=== PATIENT | male | born 2000 | race Caucasian/White ===

== ENCOUNTER 2025-04-05 14:45 | Emergency (ER) | payer SELFPAY ==
--- NOTE | ~2025-04-05 | CT_ITS ---
CLINICAL HISTORY: ?seizure vs syncope, +HS CT head without contrast Comparison: None provided Findings: No intra-axial mass, midline shift, hydrocephalus, or acute hemorrhage. No significant atrophy-like change or white matter disease. The visualized paranasal sinuses and mastoid air cells are normal. Enophthalmos. Orbits otherwise unremarkable. No skull fracture. IMPRESSION: 1. No acute intracranial findings. This document has been electronically signed by: Max Gibbons MD on 04/05/2025 16:27:13
--- NOTE | ~2025-04-05 | XR_ITS ---
CLINICAL HISTORY: syncope vs seizure 1 view chest x-ray Comparison: None provided Findings: The lungs are clear. Normal size heart. No acute fracture. IMPRESSION: 1. No acute findings. This document has been electronically signed by: Max Gibbons MD on 04/05/2025 16:22:12
[2025-04-05 14:56] VITALS: BP 168/97; PULSE 81; RESP 18; TEMP 36.6; O2SAT 98; BMI 23.4
--- NOTE | 2025-04-05 14:57 | ED_ITS ---
HPI - General Adult General Chief complaint: General Medical Stated complaint: Vital check Time Seen by Provider: 04/05/25 17:47 History of Present Illness ED Provider: Jade SCALES narrative: The patient is a generally healthy 25-year-old male who was on no medications. He comes to the emergency room for an evaluation of events that happened yesterday evening. The patient says that yesterday evening he use some marijuana and also had 3 shots of alcohol. At at some period of time after he had had the alcohol he was not feeling particularly intoxicated. He was preparing some food in the kitchen. He says that while he was in the kitchen he rather abruptly felt as though he was very intoxicated and also felt lightheaded. He sat down. His cousin was home and walked into the kitchen when he started to feel unwell.. He did not want his cousin to know that he was not feeling well so he told his cousin he needed to go to the bathroom. He walked to the bathroom. He says that when he got to the bathroom he felt very lightheaded and collapsed on the floor. While on the floor he felt that he was convulsing although he was conscious and recalls this episode. He says that he felt as though he was convulsing for less than a minute and then the convulsing stopped. He then got up and walked to the living room where his cousin was. He says that he felt very lightheaded when he walked into the living room and then collapsed in passed out momentarily. He says that there was no convulsing or other signs of seizure activity during this episode of passing out. He says he passed out only very briefly and came to to a normal mental status. His cousin helped him off the floor and he sat on a couch for awhile until he was feeling better a few minutes later. He rested during the rest of the evening until he went to bed and slept normally during the night. There was no tongue biting or incontinence during either of the 2 episodes of collapse. Today family members encouraged him to come to the hospital for evaluation. The patient says that several years ago he had an episode of near-syncope when he cut his finger and he saw his own blood. The patient also says that he has been coughing for the last several weeks. He has felt as if he has a cold or some kind of lung infection. He does not think he has had a fever but he is not certain. He feels that he is getting somewhat better. The patient says that he does not normally drink much alcohol. He says that his grandfather recently. The was 2 weeks ago. He says he has been drinking more than usual over the last 2 weeks. He says that ordinarily he has not drink much. He says that he uses marijuana daily and he used marijuana last night. He denies any other drug use last night. The patient works as a reinforcing bar setter. He says he does not have a regular doctor. He smokes 1 pack of cigarettes a day. He says that he has been very sad since his grandfather but he is not suicidal. He says that when he was young he grew up with a lot of family dysfunction and drug use and he says that when he was young he sometimes had some suicidal thoughts but he has not had any recent suicidal thoughts. He lives at home with his grandmother. His cousin was visiting for the weekend. Related Data Allergies Allergy/AdvReac Type Severity Reaction Status Date / Time banana (BANANA) Allergy Unknown UNKNOWN Verified 04/05/25 14:58 Review of Systems 2 Review of Systems: Yes all other systems are reviewed and are negative [facility] Social History Social History Advance Directives: No Advance Directives Information Provided: No Do you have a plan to hurt others: No Plan Physical Exam ED Vital Signs: Vital Signs - 24 hr 04/05/25 14:56 04/05/25 17:59 04/05/25 17:59 Temperature 97.9 F Pulse Rate 81 67 63 Respiratory Rate 18 Blood Pressure 168/97 H 126/80 140/91 H Pulse Oximetry 98 Oxygen Delivery Method Room Air 04/05/25 17:59 04/05/25 18:31 04/05/25 19:44 Temperature 98.3 F Pulse Rate 71 63 71 Respiratory Rate 20 16 Blood Pressure 148/94 H 126/76 Pulse Oximetry 98 Oxygen Delivery Method Room Air 04/05/25 20:18 Temperature 98.2 F Pulse Rate 71 Respiratory Rate 16 Blood Pressure 124/68 Pulse Oximetry 98 Oxygen Delivery Method Room Air BMI result Body Mass Index 23.4 Const Other: The patient has the appearance of a healthy looking 25-year-old. He is awake and alert and does not appear in acute distress. HENMT Other: The face is symmetrical. ?Mucous membranes moist. Eyes General: appearance normal, both eyes and all related structures Alignment and Position: alignment normal Periorbital: periorbital findings normal Eyelids: Yes eyelids normal Conjunctivae: conjunctivae normal Sclerae: sclerae normal Pupils: Equal, round and reactive pupils present EOM: EOMs intact bilaterally Neck Neck: Yes normal visual inspection and Yes full ROM Resp Other: The patient had some inspiratory and expiratory wheezes bilaterally. He was not showing any signs of respiratory distress however. Cardio Rate: regular rate Rhythm: regular rhythm Heart sounds: S1 normal heart sound present and S2 normal heart sound present GI Other: Abdomen is soft and nontender Skin Other: The skin is dry and unremarkable Neuro Other: The patient is awake and alert with a normal mental status. Pupils are round, equal, and reactive to light, extraocular movements are intact, face is symmetrical. Speech is normal. He moves all of his extremities normally. His gait is normal. He seems entirely neurologically intact. Cranial nerves: Yes Equal, round and reactive pupils present Extrem Other: Extremities are unremarkable. Course Course Course Narrative: This is a Rapid Medical Exam performed in triage by Jerrica Cervantes PA-C. Full HPI, ROS and PE to be performed by primary ED provider. 25 yo M w/no sig PMHx presenting to the ED c/o ?suspected 1st time seizure last night. States he had 2 shots of alcohol and then felt like he was slurring his speech & collapsed in the bathroom w/+HS. No incontinence or tongue biting occurred during incident. States felt lethargic after however was awake for incident. States then again collapsed in his kitchen afterwards. States he has been drinking more since the of his grandfather, about 4 shots and 1 beer daily. PE: NAD. ambulating with steady gait Plan: EKG, labs, Head CT Medications Administered Discontinued Medications Generic Name Dose Route Start Last Admin Trade Name Freq PRN Reason Stop Dose Admin Albuterol Sulfate 4 puff 04/05/25 18:26 04/05/25 19:41 Albuterol Sulfate 90 Mcg 8 Gm Inhaler INHALE 04/05/25 18:27 4 puff ONCE ONE Administration Medical Decision Making Medical Decision Making MDM Narrative: The patient is a 25-year-old male who had some kind of episodes last night after having had marijuana and alcohol. He describes collapsing in a bathroom but not losing consciousness. He says that he felt that he was convulsing when he was lying on the floor of the bathroom but he recalls the entire incident and he was then able to get up and walk. He then collapsed again and had a brief loss of consciousness that was not associated with any abnormal movements. He had no tongue biting or incontinence. He comes today, almost 24 hours after the incident. Aside from some wheezing in his lungs his physical exam is very reassuring. Based on the description of the episodes I do not think these were seizures. I suspect that this was more some kind of a near-syncope followed by a syncope probably related to alcohol and marijuana use. The patient also says that he has been feeling quite upset since his grandfather's a few weeks ago. He denies suicidality however. The patient has a workup in the emergency room that included a head CT, chest x- ray, and multiple laboratory tests all of which were unremarkable. His EKGs normal. The patient says he does not have a history of asthma or wheezing but he is a pack-a-day smoker. I suspect he has some viral bronchitis (as COVID and influenza are negative, in his chest x-ray is clear). Respiratory therapy instructed him the use of an inhaler and he will be discharged with an albuterol inhaler. You may use 2 puffs every 4 hours as needed. He does not have insurance or a primary care doctor. He is advised to try to get insurance through his employer and also to get a primary care doctor. He was given contact information for local primary care offices. Additionally he was given the contact information for the [facility] clinic in case he has any interest in trying to get a therapist. He should return if worse. Since I do not believe these episodes last night were seizures I do not feel he requires any restrictions and driving or doing his work as a reinforcing bar setter. Lab Data 04/05/25 15:09 04/05/25 15:09 Labs: Lab Results 04/05/25 Range/Units 15: WBC 7.9 (4.8-10.8) X10*3/uL RBC 5.36 (4.60-5.80) X10*6/uL Hgb 15.8 (14.0-18.0) g/dl Hct 46.1 (42.0-52.0) % MCV 86.0 (80.0-98.0) fL MCH 29.5 (27.0-33.0) pg MCHC 34.3 (31.0-36.0) g/dl RDW 12.5 (11.0-16.0) % Plt Count 244 (160-400) X10*3/uL MPV 9.4 (9.4-12.4) fL Immature Gran % (Auto) 0.4 (0.0-0.4) % Neut % (Auto) 53.8 (45-73) % Lymph % (Auto) 33.9 (20-40) % [place] % (Auto) 9.4 (2-11) % Eos % (Auto) 2.2 (0-4) % Baso % (Auto) 0.3 (0-2) % Lymph # (Auto) 2.7 (1.2-4.9) X10*3/uL [place] # (Auto) 0.7 (0.1-1.2) X10*3/uL Eos # (Auto) 0.2 (0.0-0.4) X10*3/uL Baso # (Auto) 0.0 (0.0-0.2) X10*3/uL Abs Immat Gran (auto) 0.03 (0.00-0.03) X10*3/uL Absolute Neuts (auto) 4.2 (2.0-8.3) x10*3/uL Absolute Nucleated RBC 0.000 (0.0-0.012) X10*3/uL Nucleated RBC % (auto) 0.0 (0.0-0.2) /100WBC Sodium 138 (135-145) mmol/L Potassium 4.2 (3.3-5.1) mmol/L Chloride 104 (96-108) mmol/L Carbon Dioxide 26 (22-29) mmol/L Anion Gap 12 (12-20) BUN 18 H (9-16) mg/dL Creatinine 1.29 (0.5-1.4) mg/dL Estim Creat Clear Calc 92.4 Estimated GFR > 60 Random Glucose 95 (60-115) mg/dL Calcium 9.0 (8.4-10.2) mg/dL Magnesium 2.0 (1.6-2.6) mg/dL Total Bilirubin 0.4 (0.0-1.0) mg/dL Direct Bilirubin 0.2 (0.0-0.5) mg/dL AST 20 (5-37) U/L ALT 20 (0-40) U/L Alkaline Phosphatase 93 (39-117) U/L Total Protein 7.2 (6.5-8.0) g/dL Albumin 4.8 (3.5-5.0) g/dL Lipase 39 (8-78) U/L Ethyl Alcohol < 10 mg/dL Discharge Plan Discharge Clinical Impression: Syncope, Bronchitis Patient Disposition: Home, Self-Care Additional Instructions: I think that the episode you had last night were more fainting spells than seizures. I suspect that the fainting spells were probably related to alcohol and marijuana use. Please be very careful with the alcohol marijuana use in the future. I think you also have a case of bronchitis which may be in part worsened by your smoking of cigarettes. Please use the albuterol inhaler provided 2 puffs every 4 hours as needed. My hope is that your breathing issues will clear up in a few days. Please work on getting a primary care doctor. You has been provided with the contact information for several local primary care offices. Additionally, if you have any interest in trying to find a therapist you can contact or present yourself to the [facility] run by the [facility] ([facility]). If at any point you feel significantly worse please return to the emergency department. Referrals: [facility] [place] [facility] [Provider Group, Internal Medicine] [facility] [place] [facility] [Provider Group, Internal Medicine] [facility] [place] Primary Care, [facility] [Provider Group, Primary Care] [facility] [place], [facility] [Provider Group, Primary Care] [facility] [Outside] Khadijah Carrasco MD [Physician, Internal Medicine] Stand Alone Forms: Work/School Release Interventions: ED Discharge Assessment Last Done: 04/05/25 20:18 Discharge Date/Time: 04/05/25 20:19 Print Language: [place]
--- NOTE | 2025-04-05 14:59 | ECG_ITS ---
Test Reason : syncope Blood Pressure : */* mmHG Vent. Rate : 73 BPM Atrial Rate : 73 BPM P-R Int : 132 ms QRS Dur : 98 ms QT Int : 380 ms P-R-T Axes : 17 27 32 degrees QTcB Int : 418 ms Normal sinus rhythm Normal ECG No previous ECGs available Referred By: Jerrica Cervantes Electronically Signed By: ROVERTO PAREKH
[2025-04-05 15:13] LABS: MANUAL DIFF FLAG NO
[2025-04-05 15:14] LABS: Hematocrit 46.1 % (42.0-52.0); Hemoglobin 15.8 g/dl (14.0-18.0); Imm Gran Abs Auto 0.03 X10*3/uL (0.00-0.03); Imm Gran Pct Auto 0.4 % (0.0-0.4); Lymphocytes Absolute Auto 2.7 X10*3/uL (1.2-4.9); Mean Corpuscular HGB Conc 34.3 g/dl (31.0-36.0); Mean Corpuscular Hemoglobin 29.5 pg (27.0-33.0); Mean Corpuscular Volume 86.0 fL (80.0-98.0); NRBC Abs Auto 0.000 X10*3/uL (0.0-0.012); NRBC Pct Auto 0.0 /100WBC (0.0-0.2); Platelet Count 244 X10*3/uL (160-400); Red Blood Count 5.36 X10*6/uL (4.60-5.80); White Blood Count 7.9 X10*3/uL (4.8-10.8)
[2025-04-05 15:38] LABS: Alanine Aminotransferase 20 U/L (0-40); Albumin Level 4.8 g/dL (3.5-5.0); Alkaline Phosphatase 93 U/L (39-117); Anion Gap 12 (12-20); Aspartate Amino Transferase 20 U/L (5-37); Blood Urea Nitrogen 18 mg/dL (9-16); Calcium 9.0 mg/dL (8.4-10.2); Carbon Dioxide 26 mmol/L (22-29); Chloride 104 mmol/L (96-108); Creatinine Clr Calc Pharmacy 92.4; Estimated Glomerular Filt Rate > 60; Lipase 39 U/L (8-78); Magnesium 2.0 mg/dL (1.6-2.6); Potassium 4.2 mmol/L (3.3-5.1); Sodium 138 mmol/L (135-145); Total Protein 7.2 g/dL (6.5-8.0)
[2025-04-05 17:59] VITALS: BP 126/80; BP 140/91; BP 148/94; PULSE 63; PULSE 67; PULSE 71
[2025-04-05 18:31] VITALS: BP 126/76; PULSE 63; RESP 20; TEMP 36.8; O2SAT 98
[2025-04-05] MEDS: Albuterol Sulfate 90 MCG 8 GM INHALER 4 PUFF INHALE (19:41)
[2025-04-05 19:44] VITALS: PULSE 71; RESP 16; O2SAT 98
[2025-04-05 20:18] VITALS: BP 124/68; PULSE 71; RESP 16; TEMP 36.8; O2SAT 98
== END 2025-04-05 20:19 | disposition home or self-care (01) ==
PROVIDERS: Physician Assistant; Emergency Provider Emergency Medicine
DX: R55 Syncope and collapse (principal); J40 Bronchitis, not specified as acute or chronic; F12.90 Cannabis use, unspecified, uncomplicated; F10.129 Alcohol abuse with intoxication, unspecified; Y90.0 Blood alcohol level of less than 20 mg/100 ml; Z51.81 Encounter for therapeutic drug level monitoring; Z79.899 Other long term (current) drug therapy
CPT/HCPCS: 36415; 70450; 71045; 80048; 80076; 80307; 83690; 83735; 85025; 93005; 94640; 94664; 99284

== ENCOUNTER → 2025-04-05 14:59 | Outpatient (BNV) | payer SELFPAY | PROVIDERS: Emergency Provider Emergency Medicine; Visit Provider Internal Medicine | DX: R55 Syncope and collapse (principal) | CPT/HCPCS: 93010 ==

== ENCOUNTER → 2025-04-05 15:00 | Outpatient (BNV) | payer SELFPAY | PROVIDERS: Visit Provider Radiology Diagnostic Radiology | DX: S09.90XA Unspecified injury of head, initial encounter (principal); R55 Syncope and collapse; R42 Dizziness and giddiness | CPT/HCPCS: 70450; 71045 ==